=== PATIENT | female | born 1980 | race African-American/Black ===

== ENCOUNTER 2017-09-10 08:31 | Inpatient (IN) | payer SELFPAY ==
[~2017-09-10] VITALS: Ht 167.6 cm; Wt 94.8 kg
[2017-09-10] MEDS ORDERED: IPRATROPIUM BROMIDE (0.02%) 0.5MG/2.5ML NEB HHN STA (08:47)
[2017-09-10] MEDS ORDERED: METHYLPREDNISOLONE SOD SUCC 125 MG/2 ML VIAL IV STA (08:47)
[2017-09-10] MEDS: ALBUTEROL (0.083%) 2.5MG/3ML NEB HHN SCH ×3 (08:50→10:05)
[2017-09-10 09:27] LABS: CHLORIDE 107 mEq/L (98-107)
[2017-09-10 09:30] LABS: BASOPHILS % 0.3 % (0.0-2.0); EOSINOPHILS % 1.8 % (0.0-5.0); HEMOGLOBIN. 12.6 g/dL (12.0-16.0); MEAN CORPUSCULAR VOLUME 82.7 fL (81.0-99.0); MEAN PLATELET VOLUME 6.9 fl (7.4-10.4); MONOCYTES % 3.2 % (2.0-8.0); NEUTROPHILS % 79.7 % (40.0-76.0); PLATELET 272 x1000/uL (130-400); RED BLOOD CELL COUNT 4.35 mill/uL (4.2-5.4); RED CELL DISTRIBUTION WIDTH 13.7 % (11.6-14.6)
[2017-09-10] MEDS ORDERED: POTASSIUM CHLORIDE 20MEQ TABLET SR PO ONE (10:30)
[2017-09-10] MEDS ORDERED: KCL 10MEQ/50ML PREMIX 50 ML IV ONE (10:30)
[2017-09-10] MEDS ORDERED: MAGNESIUM 2 G PREMIX 50 ML IV ONE (10:45)
[2017-09-10 13:30] VITALS: BP 151/60
[2017-09-10] MEDS ORDERED: IPRATROPIUM/ALBUTEROL 0.5-3(2.5)MG/3ML NEB HHN PRN (13:45)
[2017-09-10 14:00] VITALS: BP 123/72
[2017-09-10] MEDS ORDERED: GUAIFENESIN 200MG/10ML SUGAR FREE UDC PO PRN (14:30)
[2017-09-10] MEDS ORDERED: CLONIDINE 0.1MG TABLET PO PRN (14:30)
[2017-09-10] MEDS ORDERED: ACETAMINOPHEN 325MG TABLET PO PRN (14:30)
[2017-09-10] MEDS ORDERED: ONDANSETRON HCL 4MG/2ML VIAL IV PRN (14:30)
[2017-09-10 15:23] VITALS: BP 115/71
[2017-09-10] MEDS: HYDROCODONE/ACETAMINOPHEN 5/325MG TABLET PO PRN (15:39)
[2017-09-10] MEDS: ENOXAPARIN 40MG/0.4ML SYR SUBCUT SCH (15:43)
[2017-09-10] MEDS: IPRATROPIUM/ALBUTEROL 0.5-3(2.5)MG/3ML NEB INH PRN (15:43)
[2017-09-10] MEDS: LEVOFLOXACIN 500MG PREMIX 100 ML IV SCH (16:55)
[2017-09-10 20:00] VITALS: BP 118/75
[2017-09-10] MEDS: IPRATROPIUM/ALBUTEROL 0.5-3(2.5)MG/3ML NEB INH SCH (21:22)
[2017-09-11] VITALS: BP 104/69
[2017-09-11] MEDS: IPRATROPIUM/ALBUTEROL 0.5-3(2.5)MG/3ML NEB INH SCH ×4 (01:45→20:57)
[2017-09-11 04:00] VITALS: BP 106/70
[2017-09-11] MEDS ORDERED: IBUP50DR2 PO (04:47)
[2017-09-11] MEDS ORDERED: ACET-2178 PO (04:47)
[2017-09-11 06:39] LABS: BASOPHILS % 0.1 % (0.0-2.0); HEMATOCRIT. 33.8 % (36.0-48.0); HEMOGLOBIN. 11.9 g/dL (12.0-16.0); MEAN CORPUSCULAR HEMOGLOBIN 28.6 pg (28.0-32.0); MEAN CORPUSCULAR VOLUME 81.4 fL (81.0-99.0); MONOCYTES % 5.7 % (2.0-8.0); NEUTROPHILS % 86.2 % (40.0-76.0); PLATELET 304 x1000/uL (130-400); RED BLOOD CELL COUNT 4.15 mill/uL (4.2-5.4)
[2017-09-11 07:30] LABS: CHLORIDE 107 mEq/L (98-107)
[2017-09-11 08:00] VITALS: BP 109/75
[2017-09-11] MEDS: HYDROCODONE/ACETAMINOPHEN 5/325MG TABLET PO PRN ×2 (09:40→20:14)
[2017-09-11 12:00] VITALS: BP 101/61
[2017-09-11] MEDS ORDERED: BENZONATATE 100MG CAPSULE PO PRN (14:15)
[2017-09-11] MEDS: ENOXAPARIN 40MG/0.4ML SYR SUBCUT SCH (14:44)
[2017-09-11] MEDS: LEVOFLOXACIN 500MG PREMIX 100 ML IV SCH (15:41)
[2017-09-11 16:00] VITALS: BP 108/72
[2017-09-11] MEDS: METHYLPREDNISOLONE SOD SUCC 40 MG/ML VIAL IV SCH (17:29)
[2017-09-11] MEDS: IPRATROPIUM/ALBUTEROL 0.5-3(2.5)MG/3ML NEB INH PRN (18:34)
[2017-09-11 20:00] VITALS: BP 110/73
[2017-09-11] MEDS: FAMOTIDINE 20MG/2ML VIAL IV SCH (20:13)
[2017-09-11] MEDS ORDERED: MONTELUKAST SODIUM 10MG TABLET PO SCH (21:00)
[2017-09-12] VITALS: BP 107/70
[2017-09-12] MEDS: METHYLPREDNISOLONE SOD SUCC 40 MG/ML VIAL IV SCH ×2 (01:46→09:56)
[2017-09-12] MEDS: IPRATROPIUM/ALBUTEROL 0.5-3(2.5)MG/3ML NEB INH SCH ×2 (02:10→08:47)
[2017-09-12 04:00] VITALS: BP 111/71
[2017-09-12 06:48] LABS: BASOPHILS % 0.2 % (0.0-2.0); HEMATOCRIT. 37.4 % (36.0-48.0); HEMOGLOBIN. 12.8 g/dL (12.0-16.0); LYMPHOCYTES % 12.8 % (20.0-50.0); MEAN CORPUSCULAR HEMOGLOBIN 28.2 pg (28.0-32.0); MEAN CORPUSCULAR VOLUME 82.7 fL (81.0-99.0); MEAN PLATELET VOLUME 7.2 fl (7.4-10.4); MONOCYTES % 5.6 % (2.0-8.0); NEUTROPHILS % 81.4 % (40.0-76.0); PLATELET 319 x1000/uL (130-400); RED BLOOD CELL COUNT 4.52 mill/uL (4.2-5.4); RED CELL DISTRIBUTION WIDTH 14.4 % (11.6-14.6)
[2017-09-12 08:05] LABS: CHLORIDE 105 mEq/L (98-107)
[2017-09-12 08:30] VITALS: BP 110/77
[2017-09-12] MEDS ORDERED: ENOXAPARIN 30MG/0.3ML SYR SUBCUT SCH (09:00)
[2017-09-12] MEDS: FAMOTIDINE 20MG/2ML VIAL IV SCH (09:56)
[2017-09-12 12:00] VITALS: BP 108/72
[2017-09-12 13:06] VITALS: BP 110/77
[2017-09-12] MEDS ORDERED: GUAIFENESIN 600MG ER TABLET PO SCH (21:00)
[2017-09-12] MEDS ORDERED: METHYLPREDNISOLONE SOD SUCC 40 MG/ML VIAL IV SCH (21:00)
[2017-09-12] MEDS ORDERED: FAMOTIDINE 20MG TABLET PO SCH (21:00)
== END 2017-09-12 13:51 | disposition home or self-care (01) | DRG 133 ==
LOC: ER 08:31 → 5WST 10:50 → ENRESERV 11:48
PROVIDERS: ADMIT Hospitalist; ATTEND Hospitalist
DX: J96.00 Acute respiratory failure, unspecified whether with hypoxia or hypercapnia (principal); E46 Unspecified protein-calorie malnutrition; J45.901 Unspecified asthma with (acute) exacerbation; J20.9 Acute bronchitis, unspecified; F17.210 Nicotine dependence, cigarettes, uncomplicated; E87.6 Hypokalemia; D72.829 Elevated white blood cell count, unspecified; T38.0X5A Adverse effect of glucocorticoids and synthetic analogues, initial encounter; Z82.5 Family history of asthma and other chronic lower respiratory diseases; Y92.89 Other specified places as the place of occurrence of the external cause
CPT/HCPCS: 36415; 71045; 80053; 85025; 93005; 93970; 94640; 96374; 96375; 99285; J1650; J1956; J2920; J2930; J3475; J3480; J3490; J7030; J7611; J7620

== ENCOUNTER 2020-11-30 14:50 | Emergency (ER) | payer SELFPAY ==
[~2020-11-30] VITALS: Ht 172.7 cm; Wt 91.0 kg
[~2020-11-30 14:50] MED LIST: IBUP50DR2 PO; TOPUD PO
[2020-11-30] MEDS ORDERED: MAGNESIUM/ALUMINUM HYDROXIDE/SIMETHICONE 30ML UDC PO STA (16:35)
[2020-11-30] MEDS ORDERED: ONDANSETRON 4MG ODT PO STA (16:35)
[2020-11-30 17:31] LABS: CHLORIDE 107 mEq/L (98-107)
[2020-11-30 17:51] LABS: HCG SCREEN NEGATIVE
[2020-11-30] MEDS ORDERED: KETOROLAC 30MG/ML VIAL IV STA (18:10)
[2020-11-30 18:19] LABS: CLARITY URINE CLEAR (CLEAR); COLOR URINE YELLOW (YELLOW); KETONES URINE TRACE (NEGATIVE); LEUKOCYTE ESTERASE URINE 1+ (NEGATIVE); NITRITE URINE NEGATIVE (NEGATIVE); OCCULT BLOOD URINE 3+ (NEGATIVE); PROTEIN URINE NEGATIVE (NEGATIVE); SPECIFIC GRAVITY URINE 1.016 (1.005-1.030); UROBILINOGEN URINE 0.2 E.U./dL (0.2-1.0)
[2020-11-30 18:46] LABS: BASOPHILS % 0.9 % (0.0-2.0); EOSINOPHILS % 2.2 % (0.0-5.0); HEMATOCRIT. 35.4 % (36.0-48.0); HEMOGLOBIN. 12.7 g/dL (12.0-16.0); LYMPHOCYTES % 33.9 % (20.0-50.0); MEAN CORPUSCULAR HEMOGLOBIN 30.9 pg (28.0-32.0); MEAN CORPUSCULAR VOLUME 85.9 fL (81.0-99.0); MEAN PLATELET VOLUME 7.7 fl (7.4-10.4); PLATELET 315 x1000/uL (130-400); RED BLOOD CELL COUNT 4.12 mill/uL (4.2-5.4)
[2020-11-30] MEDS ORDERED: CEFTRIAXONE 1 G PREMIX 50 ML IV ONE (19:15)
[2020-11-30] MEDS ORDERED: IBUP-2029 MT (20:03)
[2020-11-30] MEDS ORDERED: T3 PO (20:04)
[2020-11-30] MEDS ORDERED: CEPH500C2 MT (20:05)
[2020-11-30 21:00] VITALS: BP 142/81
== END 2020-11-30 21:00 | disposition home or self-care (01) ==
LOC: ER 14:50
DX: D25.9 Leiomyoma of uterus, unspecified (principal); K85.90 Acute pancreatitis without necrosis or infection, unspecified; N30.00 Acute cystitis without hematuria; R03.0 Elevated blood-pressure reading, without diagnosis of hypertension
CPT/HCPCS: 36415; 74176; 80053; 81003; 81025; 83690; 84703; 85025; 93005; 96365; 96375; 99285; J0696; J1885; Q0162

== ENCOUNTER 2022-12-10 17:26 | Emergency (ER) | payer MEDICAID, OTHER ==
[~2022-12-10] VITALS: Ht 165.1 cm; Wt 77.0 kg
[~2022-12-10 17:26] MED LIST changes: +CEPH500C2 MT; +IBUP-2029 MT; +T3 PO
[2022-12-10 18:42] LABS: BASOPHILS % 0.3 % (0.0-2.0); EOSINOPHILS % 0.5 % (0.0-5.0); HEMATOCRIT. 24.8 % (36.0-48.0); HEMOGLOBIN. 8.8 g/dL (12.0-16.0); LYMPHOCYTES % 21.2 % (20.0-50.0); MEAN CORPUSCULAR HEMOGLOBIN 37.7 pg (28.0-32.0); MEAN CORPUSCULAR VOLUME 106.2 fL (81.0-99.0); MEAN PLATELET VOLUME 7.7 fl (7.4-10.4); MONOCYTES % 10.2 % (2.0-8.0); NEUTROPHILS % 67.8 % (40.0-76.0); PLATELET 141 x1000/uL (130-400); RED BLOOD CELL COUNT 2.33 mill/uL (4.2-5.4); RED CELL DISTRIBUTION WIDTH 17.8 % (11.6-14.6)
[2022-12-10 18:51] LABS: CHLORIDE 111 mEq/L (98-107)
[2022-12-10 18:52] LABS: PROTHROMBIN TIME 10.6 sec (9.6-11.0)
[2022-12-10] MEDS ORDERED: ACETAMINOPHEN 325MG TABLET PO ONE (19:00)
[2022-12-10] MEDS ORDERED: ALBUTEROL (0.083%) 2.5MG/3ML NEB HHN ONE (19:00)
[2022-12-10] MEDS ORDERED: IPRATROPIUM BROMIDE (0.02%) 0.5MG/2.5ML NEB HHN ONE (19:00)
[2022-12-10] MEDS ORDERED: SODIUM CHLORIDE 0.9% 1000ML BAG (SEPSIS BOLUS) IV ONE (19:00)
[2022-12-10] MEDS ORDERED: IPRATROPIUM BROMIDE (0.02%) 0.5MG/2.5ML NEB ONE (20:47)
[2022-12-10] MEDS ORDERED: ALBUTEROL (0.5%) 2.5MG/0.5ML NEB HHN ONE (20:47)
[2022-12-10 22:29] LABS: D-DIMER 0.42 mg/L FEU (<0.50); PROTHROMBIN TIME 10.5 sec (9.6-11.0)
[2022-12-10 22:37] LABS: CLARITY URINE CLEAR (CLEAR); COLOR URINE YELLOW (YELLOW); KETONES URINE NEGATIVE (NEGATIVE); LEUKOCYTE ESTERASE URINE NEGATIVE (NEGATIVE); NITRITE URINE NEGATIVE (NEGATIVE); OCCULT BLOOD URINE NEGATIVE (NEGATIVE); PROTEIN URINE NEGATIVE (NEGATIVE); SPECIFIC GRAVITY URINE 1.023 (1.005-1.030)
[2022-12-10 22:38] LABS: HCG SCREEN NEGATIVE
[2022-12-10 22:41] LABS: CREATINE KINASE 60 IU/L (26-192); ETHANOL BLOOD < 10 mg/dL
[2022-12-10 22:54] LABS: *AMPHETAMINES SCREEN URINE NEGATIVE (NEGATIVE); *BARBITURATES SCREEN URINE NEGATIVE (NEGATIVE); *BENZODIAZEPINES SCREEN URINE NEGATIVE (NEGATIVE); *COCAINE SCREEN URINE NEGATIVE (NEGATIVE); METHADONE URINE SCREEN NEGATIVE (NEGATIVE); OPIATES URINE SCREEN NEGATIVE (NEGATIVE); PHENCYCLIDINE URINE SCREEN NEGATIVE (NEGATIVE)
[2022-12-10 23:01] LABS: CANNABINOID URINE SCREEN PRESUMTIVE POSITIVE (NEGATIVE)
[2022-12-10] MEDS ORDERED: GUAI600T26 MT (23:12)
[2022-12-10] MEDS ORDERED: ACET-2708 MT (23:12)
[2022-12-10] MEDS ORDERED: ALBU6.7H3 INH (23:12)
[2022-12-11] VITALS: BP 92/68
== END 2022-12-11 00:25 | disposition home or self-care (01) ==
LOC: ER 17:26
DX: J45.909 Unspecified asthma, uncomplicated (principal); F12.90 Cannabis use, unspecified, uncomplicated; Z20.822 Contact with and (suspected) exposure to COVID-19; Z85.3 Personal history of malignant neoplasm of breast; Z79.899 Other long term (current) drug therapy
CPT/HCPCS: 36415; 71045; 80053; 80305; 80320; 81003; 82550; 83605; 83690; 83880; 84145; 84484; 84703; 85025; 85379; 85610; 87040; 87086; 87426; 87804; 93005; 94640; 99285; C9803; J7030; Z7610; G0480

== ENCOUNTER 2022-12-25 11:44 | Inpatient (IN) | payer OTHER ==
[~2022-12-25] VITALS: Ht 165.1 cm; Wt 79.4 kg
[~2022-12-25 11:44] MED LIST changes: +ACET-2708 MT; +ALBU6.7H3 INH; +GUAI600T26 MT
[2022-12-25] MEDS ORDERED: IPRATROPIUM/ALBUTEROL 0.5-3(2.5)MG/3ML NEB HHN ONE (12:45)
[2022-12-25] MEDS ORDERED: METHYLPREDNISOLONE SOD SUCC 125 MG/2 ML VIAL IV ONE (12:45)
[2022-12-25 13:02] LABS: HEMATOCRIT. 21.4 % (36.0-48.0); HEMOGLOBIN. 7.5 g/dL (12.0-16.0); MEAN CORPUSCULAR HEMOGLOBIN 36.8 pg (28.0-32.0); MEAN CORPUSCULAR VOLUME 104.9 fL (81.0-99.0); MEAN PLATELET VOLUME 8.4 fl (7.4-10.4); RED BLOOD CELL COUNT 2.04 mill/uL (4.2-5.4); RED CELL DISTRIBUTION WIDTH 16.4 % (11.6-14.6)
[2022-12-25 13:06] LABS: CHLORIDE 108 mEq/L (98-107)
[2022-12-25 14:07] LABS: PLATELET ESTIMATE MARKEDLY DECREASED
[2022-12-25 14:08] LABS: PLATELET 35 x1000/uL (130-400)
[2022-12-25 14:11] LABS: NUCLEATED RED BLOOD CELLS 1 /100 WBC
[2022-12-25 18:38] VITALS: BP 93/52
[2022-12-25] MEDS ORDERED: OLAN5TAB74 PO (19:47)
[2022-12-25] MEDS ORDERED: ALBU6.7H15 INH (19:47)
[2022-12-25] MEDS ORDERED: ONDA8TAB59 PO (19:47)
[2022-12-25 20:00] VITALS: BP 105/69
[2022-12-25] MEDS ORDERED: ACETAMINOPHEN 325MG TABLET PO PRN ×2 (20:15)
[2022-12-25] MEDS ORDERED: CLONIDINE 0.1MG TABLET PO PRN (20:15)
[2022-12-25] MEDS ORDERED: LORAZEPAM 0.5MG TABLET PO PRN (20:15)
[2022-12-25] MEDS ORDERED: ONDANSETRON HCL 4MG/2ML INJ IV PRN (20:15)
[2022-12-25] MEDS ORDERED: DOCUSATE SODIUM 100MG CAPSULE PO PRN (20:15)
[2022-12-25] MEDS ORDERED: NALOXONE HCL 0.4MG/ML VIAL IV PRN (20:30)
[2022-12-25] MEDS: GUAIFENESIN 600MG ER TABLET PO SCH (20:47)
[2022-12-25] MEDS: IPRATROPIUM/ALBUTEROL 0.5-3(2.5)MG/3ML NEB HHN PRN (21:26)
[2022-12-25 22:25] LABS: *AMPHETAMINES SCREEN URINE NEGATIVE (NEGATIVE); *BARBITURATES SCREEN URINE NEGATIVE (NEGATIVE); *BENZODIAZEPINES SCREEN URINE NEGATIVE (NEGATIVE); *COCAINE SCREEN URINE NEGATIVE (NEGATIVE); CANNABINOID URINE SCREEN NEGATIVE (NEGATIVE); METHADONE URINE SCREEN NEGATIVE (NEGATIVE); OPIATES URINE SCREEN NEGATIVE (NEGATIVE); PHENCYCLIDINE URINE SCREEN NEGATIVE (NEGATIVE)
[2022-12-25 22:43] VITALS: BP 113/71
[2022-12-25 23:00] VITALS: BP 97/55
[2022-12-26] VITALS (10 sets, daily range): BP systolic 100–117; BP diastolic 53–73
[2022-12-26] MEDS: IPRATROPIUM/ALBUTEROL 0.5-3(2.5)MG/3ML NEB HHN PRN ×2 (01:43→08:08)
[2022-12-26 06:07] LABS: CHLORIDE 110 mEq/L (98-107)
[2022-12-26 07:01] LABS: HEMATOCRIT. 21.9 % (36.0-48.0); HEMOGLOBIN. 7.3 g/dL (12.0-16.0); MEAN CORPUSCULAR HEMOGLOBIN 36.1 pg (28.0-32.0); MEAN PLATELET VOLUME 7.9 fl (7.4-10.4); PLATELET 77 x1000/uL (130-400); RED BLOOD CELL COUNT 2.03 mill/uL (4.2-5.4); RED CELL DISTRIBUTION WIDTH 16.8 % (11.6-14.6)
[2022-12-26 07:22] LABS: PLATELET ESTIMATE DECREASED
[2022-12-26] MEDS: HYDROCODONE/ACETAMINOPHEN 5/325MG TABLET PO PRN ×2 (07:39→17:08)
[2022-12-26] MEDS: GUAIFENESIN 600MG ER TABLET PO SCH (09:00)
[2022-12-26] MEDS ORDERED: METHYLPREDNISOLONE SOD SUCC 40 MG/ML VIAL IV SCH (09:00)
[2022-12-26] MEDS: BENZONATATE 100MG CAPSULE PO PRN ×2 (10:02→17:08)
[2022-12-26] MEDS ORDERED: GUAIFENESIN 600MG ER TABLET PO PRN (11:00)
[2022-12-26] MEDS: IPRATROPIUM/ALBUTEROL 0.5-3(2.5)MG/3ML NEB HHN SCH ×2 (12:59→20:42)
[2022-12-26 13:32] LABS: UCG SCREEN NEGATIVE
[2022-12-26] MEDS ORDERED: MORPHINE SULFATE 2 MG/ML CPJ (NOT FOR IM USE) IV PRN (19:15)
[2022-12-26] MEDS ORDERED: DIPHENHYDRAMINE 25MG CAPSULE PO NR (20:00)
[2022-12-26] MEDS: OLANZAPINE 5MG TABLET PO SCH (21:29)
[2022-12-26] MEDS: METHYLPREDNISOLONE SOD SUCC 40 MG/ML VIAL IV SCH (21:30)
[2022-12-27] VITALS (7 sets, daily range): BP systolic 92–113; BP diastolic 58–73
[2022-12-27] MEDS: IPRATROPIUM/ALBUTEROL 0.5-3(2.5)MG/3ML NEB HHN SCH ×5 (00:54→20:14)
[2022-12-27] MEDS: BENZONATATE 100MG CAPSULE PO PRN (02:22)
[2022-12-27] MEDS: METHYLPREDNISOLONE SOD SUCC 40 MG/ML VIAL IV SCH ×3 (05:30→21:06)
[2022-12-27 05:36] LABS: HEMATOCRIT. 24.7 % (36.0-48.0); HEMOGLOBIN. 8.6 g/dL (12.0-16.0); MEAN CORPUSCULAR HEMOGLOBIN 35.6 pg (28.0-32.0); MEAN PLATELET VOLUME 8.1 fl (7.4-10.4); PLATELET 78 x1000/uL (130-400); RED BLOOD CELL COUNT 2.42 mill/uL (4.2-5.4); RED CELL DISTRIBUTION WIDTH 18.5 % (11.6-14.6)
[2022-12-27 13:12] LABS: PLATELET ESTIMATE DECREASED
[2022-12-27] MEDS ORDERED: CEFTRIAXONE 1,000 MG in DEXTROSE 5% WATER 50 ML IV SCH (16:30)
[2022-12-27] MEDS: AZITHROMYCIN 500 MG TABLET PO SCH (16:42)
[2022-12-27] MEDS: OLANZAPINE 5MG TABLET PO SCH (21:07)
[2022-12-28] MEDS: IPRATROPIUM/ALBUTEROL 0.5-3(2.5)MG/3ML NEB HHN SCH ×5 (00:29→16:18)
[2022-12-28 04:00] VITALS: BP 93/55
[2022-12-28] MEDS: METHYLPREDNISOLONE SOD SUCC 40 MG/ML VIAL IV SCH ×2 (05:21→15:43)
[2022-12-28 08:00] VITALS: BP 110/73
[2022-12-28] MEDS ORDERED: FAMO20TA8 MT (09:33)
[2022-12-28] MEDS ORDERED: P20 MT (09:33)
[2022-12-28] MEDS ORDERED: ALBU18HF2 IH (09:33)
[2022-12-28] MEDS ORDERED: AZIT500T8 MT (09:33)
[2022-12-28] MEDS ORDERED: GUAIFENESIN 600MG ER TABLET PO SCH (10:00)
[2022-12-28] MEDS ORDERED: GUAI600T44 MT (10:38)
[2022-12-28 12:00] VITALS: BP 107/60
[2022-12-28 16:00] VITALS: BP 112/61
[2022-12-28] MEDS: AZITHROMYCIN 500 MG TABLET PO SCH (16:42)
[2022-12-28 16:47] VITALS: BP 110/60
== END 2022-12-28 18:15 | disposition home or self-care (01) | DRG 133 ==
LOC: ER 11:44 → 7WST 19:20
PROVIDERS: ADMIT Internal Medicine; ATTEND Internal Medicine
PROC: 30233R1 Transfusion of Nonautologous Platelets into Peripheral Vein, Percutaneous Approach (ICD-10-PCS; principal; 2022-12-25)
PROC: 30233N1 Transfusion of Nonautologous Red Blood Cells into Peripheral Vein, Percutaneous Approach (ICD-10-PCS; 2022-12-26)
DX: J96.01 Acute respiratory failure with hypoxia (principal); D69.6 Thrombocytopenia, unspecified; D72.821 Monocytosis (symptomatic); D72.823 Leukemoid reaction; Z20.822 Contact with and (suspected) exposure to COVID-19; D72.825 Bandemia; J45.909 Unspecified asthma, uncomplicated; D53.9 Nutritional anemia, unspecified; J04.0 Acute laryngitis; J06.9 Acute upper respiratory infection, unspecified; Z92.21 Personal history of antineoplastic chemotherapy; Z85.3 Personal history of malignant neoplasm of breast; Z98.891 History of uterine scar from previous surgery; Z87.891 Personal history of nicotine dependence; Z79.899 Other long term (current) drug therapy
CPT/HCPCS: 36415; 70490; 71045; 71250; 80048; 80053; 80305; 81025; 83880; 84145; 84484; 85025; 86850; 86900; 86920; 87426; 93005; 93306; 94640; 99285; C9803; J0696; J2920; J2930; J7060; P9016; P9034; Q0163

== ENCOUNTER 2023-11-04 15:23 | Inpatient (IN) | payer MEDICAID, OTHER ==
[~2023-11-04] VITALS: Ht 172.7 cm; Wt 73.5 kg
[~2023-11-04 15:23] MED LIST changes: -ACET-2708 MT; +ALBU18HF2 IH; -ALBU6.7H3 INH; +AZIT500T8 MT; -CEPH500C2 MT; +FAMO20TA8 MT; -GUAI600T26 MT; +GUAI600T44 MT; -IBUP-2029 MT; -IBUP50DR2 PO; +OLAN5TAB74 PO; +ONDA8TAB59 PO; +P20 MT; -T3 PO; -TOPUD PO
[2023-11-04] MEDS ORDERED: CEFEPIME 1GM IN DEXT 5% 50ML IV ONE (17:15)
[2023-11-04] MEDS: VANCOMYCIN 1G PREMIX 200 ML IV NR (17:15)
[2023-11-04] MEDS: SODIUM CHLORIDE 0.9% 1000ML BAG (SEPSIS BOLUS) IV ONE (18:07)
[2023-11-04 18:21] LABS: DIFFERENTIAL COMMENT 0; EOSINOPHILS % 8.4 % (0.0-5.0); HEMATOCRIT. 39.1 % (36.0-48.0); HEMOGLOBIN. 13.5 g/dL (12.0-16.0); MEAN CORPUSCULAR HEMOGLOBIN 35.4 pg (28.0-32.0); MEAN CORPUSCULAR HGB CONC 34.6 g/dL (31.0-37.0); MEAN CORPUSCULAR VOLUME 102.3 fL (81.0-99.0); MEAN PLATELET VOLUME 6.7 fl (7.4-10.4); MONOCYTES % 9.7 % (2.0-8.0); NEUTROPHILS % 44.9 % (40.0-76.0); PLATELET 198 x1000/uL (130-400); RED BLOOD CELL COUNT 3.82 mill/uL (4.2-5.4); RED CELL DISTRIBUTION WIDTH 18.2 % (11.6-14.6); WHITE BLOOD COUNT 5.3 x1000/uL (4.5-11.0)
[2023-11-04] MEDS: CEFEPIME 1GM/50ML 50 ML IV NR (18:24)
[2023-11-04 18:51] LABS: HCG SCREEN NEGATIVE
[2023-11-04 18:54] LABS: ALANINE AMINOTRANSFERASE 18 IU/L (10-49); ALBUMIN 4.3 g/dL (3.2-4.8); ASPARTATE AMINOTRANSFERASE 25 IU/L (<34); BILIRUBIN TOTAL 0.5 mg/dL (0.1-1.0); CALCIUM 8.2 mg/dL (8.7-10.4); CARBON DIOXIDE 21 mEq/L (21-32); CHLORIDE 108 mEq/L (98-107); CREATININE 0.8 mg/dL (0.6-1.0); GLUCOSE 78 mg/dL (70-105); POTASSIUM 4.3 mEq/L (3.5-5.1); PROTEIN TOTAL 7.4 g/dL (6.0-8.3); SODIUM 136 mEq/L (136-145); UREA NITROGEN BLOOD 8 mg/dL (9-23)
[2023-11-04] MEDS: ONDANSETRON HCL 4MG/2ML INJ IV NR (18:57)
[2023-11-04 19:13] LABS: CLARITY URINE CLEAR (CLEAR); COLOR URINE YELLOW (YELLOW); GLUCOSE URINE NEGATIVE (NEGATIVE); KETONES URINE TRACE (NEGATIVE); LEUKOCYTE ESTERASE URINE NEGATIVE (NEGATIVE); NITRITE URINE NEGATIVE (NEGATIVE); OCCULT BLOOD URINE NEGATIVE (NEGATIVE); PROTEIN URINE NEGATIVE (NEGATIVE); SPECIFIC GRAVITY URINE 1.026 (1.005-1.030)
[2023-11-04 19:30] LABS: INR 0.9; PROTHROMBIN TIME 10.4 sec (9.6-11.0)
[2023-11-04 23:38] VITALS: PULSE 92; RESP 22; O2SAT 99
[2023-11-04] MEDS: IPRATROPIUM/ALBUTEROL 0.5-3(2.5)MG/3ML NEB HHN ONE (23:38)
[2023-11-05] MEDS: IOHEXOL-350 100 ML BOTTLE ONE (01:54)
[2023-11-05] MEDS ORDERED: IPRATROPIUM/ALBUTEROL 0.5-3(2.5)MG/3ML NEB HHN PRN (02:45)
[2023-11-05 03:30] VITALS: BP 136/67; PULSE 74; RESP 18; TEMP 98.7
[2023-11-05] MEDS ORDERED: ACETAMINOPHEN 325MG TABLET PO PRN (06:30)
[2023-11-05] MEDS ORDERED: HYDRALAZINE 20MG/ML VIAL IV PRN (06:30)
[2023-11-05 08:00] VITALS: BP 110/71; PULSE 98; RESP 18; TEMP 97.6
[2023-11-05 12:00] VITALS: BP 105/71; PULSE 76; RESP 20; TEMP 97.6
[2023-11-05] MEDS: PREDNISONE 20MG TABLET PO SCH (12:23)
[2023-11-05 15:17] VITALS: PULSE 80; RESP 20
[2023-11-05] MEDS: IPRATROPIUM/ALBUTEROL 0.5-3(2.5)MG/3ML NEB HHN SCH (15:17)
[2023-11-05 16:00] VITALS: BP 130/70; PULSE 82; RESP 20; TEMP 97.7
[2023-11-05 20:03] VITALS: BP 101/64; PULSE 75; RESP 18; TEMP 98.1
[2023-11-06] VITALS (8 sets, daily range): BP systolic 96–110; BP diastolic 48–75; PULSE 64–89; RESP 16–20; TEMP 97.6–98.3; O2SAT 98–100
[2023-11-06] MEDS ORDERED: P20 MT (13:02)
[2023-11-06] MEDS ORDERED: FLUT1DIS3 INH (13:02)
[2023-11-06] MEDS ORDERED: IPRA3AMP9 NEB (13:52)
== END 2023-11-06 15:52 | disposition home or self-care (01) | DRG 113 ==
LOC: ER 15:23 → EDBEDREQ 17:20 → 7WST 21:33 → EDBEDREQTM 21:35 → EDBEDREQSVC 21:35 → EDBEDREQ 21:35 → 7WST 11-05 03:27 → ER 11-05 03:43 → 7WST 11-05 04:34
PROVIDERS: ADMIT Internal Medicine; ATTEND Internal Medicine
DX: J06.9 Acute upper respiratory infection, unspecified (principal); J45.901 Unspecified asthma with (acute) exacerbation; D05.10 Intraductal carcinoma in situ of unspecified breast; Z98.891 History of uterine scar from previous surgery
CPT/HCPCS: 36415; 71045; 71250; 71275; 80053; 81003; 83605; 84145; 84703; 85025; 93005; 94640; 99291; J0692; J2405; J3370; J7512; Q9967

== ENCOUNTER 2024-06-25 13:10 | Inpatient (IN) | payer MEDICAID ==
[~2024-06-25] VITALS: Ht 165.1 cm; Wt 88.9 kg
[~2024-06-25 13:10] MED LIST changes: -AZIT500T8 MT; +FLUT1DIS3 INH; +IPRA3AMP9 NEB
[2024-06-25 13:50] VITALS: PULSE 98; RESP 22
[2024-06-25] MEDS: IPRATROPIUM BROMIDE (0.02%) 0.5MG/2.5ML NEB HHN STA (13:50)
[2024-06-25] MEDS: ALBUTEROL (0.083%) 2.5MG/3ML NEB HHN STA (13:50)
[2024-06-25] MEDS: METHYLPREDNISOLONE SOD SUCC 125MG/2ML (ACT-O-VIAL) IV STA (14:03)
[2024-06-25 14:15] LABS: BG BASE EXCESS -1.3 mmol/L (-2.0-3.0); BG CARBOXYHEMOGLOBIN 0.6 % (0.5-1.5); BG DEOXYHEMOGLOBIN 0.7 % (0.0-5.0); BG FRACTION INSPIRED OXYGEN 60; BG HCO3 ACT 22.6 mmol/L (21.0-28.0); BG METHEMOGLOBIN 0.3 % (0.5-1.5); BG OXYGEN SATURATION 99.3 % (94.0-98.0); BG OXYHEMOGLOBIN 98.4 % (94.0-98.0); BG PCO2 35.2 mmHg (32.0-45.0); BG PH 7.425 (7.350-7.450); BG PO2 180.9 mmHg (83.0-108.0); BG SAMPLE SITE LEFT RADIAL; BG TOTAL HEMOGLOBIN 13.4 g/dL (12.0-16.0); BG VENT MODE MASK HHN
[2024-06-25 15:13] LABS: BASOPHILS % 0.7 % (0.0-2.0); DIFFERENTIAL COMMENT 0; EOSINOPHILS % 2.4 % (0.0-5.0); HEMOGLOBIN. 13.3 g/dL (12.0-16.0); MEAN CORPUSCULAR HEMOGLOBIN 34.5 pg (28.0-32.0); MEAN CORPUSCULAR HGB CONC 33.2 g/dL (31.0-37.0); MEAN CORPUSCULAR VOLUME 103.9 fL (81.0-99.0); MEAN PLATELET VOLUME 6.8 fl (7.4-10.4); MONOCYTES % 6.6 % (2.0-8.0); NEUTROPHILS % 73.3 % (40.0-76.0); PLATELET 192 x1000/uL (130-400); RED BLOOD CELL COUNT 3.85 mill/uL (4.2-5.4); RED CELL DISTRIBUTION WIDTH 16.7 % (11.6-14.6); WHITE BLOOD COUNT 5.4 x1000/uL (4.5-11.0)
[2024-06-25 16:28] VITALS: PULSE 117; RESP 22; O2SAT 96
[2024-06-25 16:28] LABS: CHLORIDE 107 mEq/L (98-107); POTASSIUM 3.8 mEq/L (3.5-5.1); SODIUM 138 mEq/L (136-145)
[2024-06-25 16:29] LABS: CALCIUM 9.3 mg/dL (8.7-10.4); CARBON DIOXIDE 23 mEq/L (21-32)
[2024-06-25 16:34] LABS: CREATININE 0.8 mg/dL (0.6-1.0); GLUCOSE 97 mg/dL (70-105)
[2024-06-25 16:37] LABS: UREA NITROGEN BLOOD < 5 mg/dL (9-23)
[2024-06-25] MEDS: IPRATROPIUM/ALBUTEROL 0.5-3(2.5)MG/3ML NEB HHN NR (16:38)
[2024-06-25] MEDS ORDERED: DOCUSATE SODIUM 100MG CAPSULE PO PRN (17:15)
[2024-06-25] MEDS ORDERED: ACETAMINOPHEN 325MG TABLET PO PRN (17:15)
[2024-06-25] MEDS ORDERED: ACETAMINOPHEN 650MG/20.3ML UDC GT PRN (17:15)
[2024-06-25] MEDS ORDERED: HYDROCODONE/ACETAMINOPHEN 5/325MG TABLET PO PRN (17:15)
[2024-06-25] MEDS ORDERED: ONDANSETRON HCL 4MG/2ML INJ IV PRN (17:15)
[2024-06-25] MEDS ORDERED: CLONIDINE 0.1MG TABLET PO PRN (17:15)
[2024-06-25] MEDS ORDERED: IPRATROPIUM/ALBUTEROL 0.5-3(2.5)MG/3ML NEB HHN PRN (17:45)
[2024-06-25 20:00] VITALS: PULSE 114; RESP 22; O2SAT 97
[2024-06-25] MEDS: IPRATROPIUM/ALBUTEROL 0.5-3(2.5)MG/3ML NEB HHN SCH (20:00)
[2024-06-25] MEDS: PANTOPRAZOLE SODIUM 40 MG/VIAL IV NR (20:04)
[2024-06-25] MEDS: ENOXAPARIN 40MG/0.4ML SYR SUBCUT SCH (20:05)
[2024-06-25] MEDS: DEXT 5%/0.45% NACL 1000ML 1,000 ML IV ONE (20:38)
[2024-06-25] MEDS: CEFTRIAXONE 1GM/50ML 50 ML IV SCH (20:57)
[2024-06-25] MEDS: AZITHROMYCIN 500 MG in DEXT 5% WATER 250 ML IV SCH (21:49)
[2024-06-25] MEDS: METHYLPREDNISOLONE SOD SUCC 40MG/ML (ACT-O-VIAL) IV SCH (22:31)
[2024-06-26] VITALS (10 sets, daily range): BP systolic 100–113; BP diastolic 57–82; PULSE 87–110; RESP 18–22; TEMP 36.61404–37.05852; O2SAT 92–98
[2024-06-26] MEDS: MULTIVITAMINS,THER W-MINERALS TABLET PO SCH (08:52)
[2024-06-26] MEDS: GUAIFENESIN 200MG/10ML SUGAR FREE UDC PO PRN (08:52)
[2024-06-26] MEDS: PANTOPRAZOLE SODIUM 40 MG/VIAL IV SCH (08:52)
[2024-06-26] MEDS ORDERED: TOPUD PO (10:30)
[2024-06-26] MEDS ORDERED: GUAIFENESIN 200MG/10ML SUGAR FREE UDC PO PRN (13:45)
[2024-06-26] MEDS: BENZONATATE 100MG CAPSULE PO PRN (14:15)
[2024-06-26] MEDS: MAGNESIUM 1 G PREMIX 100 ML IV NR (14:30)
[2024-06-26] MEDS: BUDESONIDE 0.5MG/2ML NEB HHN SCH (14:56)
[2024-06-26 18:54] LABS: HEMATOCRIT. 38.6 % (36.0-48.0); HEMOGLOBIN. 13.2 g/dL (12.0-16.0); MEAN CORPUSCULAR HEMOGLOBIN 34.6 pg (28.0-32.0); MEAN CORPUSCULAR HGB CONC 34.2 g/dL (31.0-37.0); MEAN CORPUSCULAR VOLUME 101.3 fL (81.0-99.0); PLATELET 251 x1000/uL (130-400); RED BLOOD CELL COUNT 3.81 mill/uL (4.2-5.4); RED CELL DISTRIBUTION WIDTH 16.6 % (11.6-14.6); WHITE BLOOD COUNT 13.9 x1000/uL (4.5-11.0)
[2024-06-26 19:02] LABS: CARBON DIOXIDE 25 mEq/L (21-32); CHLORIDE 104 mEq/L (98-107); DIFFERENTIAL COMMENT 1; POTASSIUM 4.8 mEq/L (3.5-5.1); SODIUM 136 mEq/L (136-145)
[2024-06-26 19:03] LABS: CALCIUM 9.8 mg/dL (8.7-10.4)
[2024-06-26 19:08] LABS: CREATININE 0.7 mg/dL (0.6-1.0); GLUCOSE 114 mg/dL (70-105); UREA NITROGEN BLOOD 12 mg/dL (9-23)
[2024-06-26 19:10] LABS: PHOSPHORUS 2.6 mg/dL (2.5-4.9)
[2024-06-26] MEDS: CEFTRIAXONE 1GM/50ML 50 ML IV SCH (19:11)
[2024-06-26] MEDS: AZITHROMYCIN 500 MG TABLET PO SCH (19:11)
[2024-06-26] MEDS: GUAIFENESIN 600MG ER TABLET PO SCH (21:26)
[2024-06-27] VITALS (9 sets, daily range): BP systolic 98–133; BP diastolic 55–74; PULSE 74–96; RESP 18–22; TEMP 36.05844–37.72524; O2SAT 96–99
[2024-06-27] MEDS: ACETYLCYSTEINE 200MG/ML 20% VIAL 4ML INH SCH (02:02)
[2024-06-27 09:03] LABS: ANISOCYTOSIS 1+; PLATELET ESTIMATE NORMAL
[2024-06-27 09:09] LABS: HEMATOCRIT. 38.5 % (36.0-48.0); HEMOGLOBIN. 13.1 g/dL (12.0-16.0); MEAN CORPUSCULAR HEMOGLOBIN 34.5 pg (28.0-32.0); MEAN CORPUSCULAR VOLUME 101.5 fL (81.0-99.0); MEAN PLATELET VOLUME 7.2 fl (7.4-10.4); PLATELET 246 x1000/uL (130-400); RED BLOOD CELL COUNT 3.79 mill/uL (4.2-5.4); RED CELL DISTRIBUTION WIDTH 16.3 % (11.6-14.6); WHITE BLOOD COUNT 13.4 x1000/uL (4.5-11.0)
[2024-06-27 09:14] LABS: DIFFERENTIAL COMMENT 1
[2024-06-27 09:16] LABS: CALCIUM 10.1 mg/dL (8.7-10.4); CARBON DIOXIDE 26 mEq/L (21-32); CHLORIDE 102 mEq/L (98-107); POTASSIUM 4.4 mEq/L (3.5-5.1); SODIUM 136 mEq/L (136-145)
[2024-06-27 11:29] LABS: CREATININE 0.8 mg/dL (0.6-1.0); GLUCOSE 102 mg/dL (70-105); UREA NITROGEN BLOOD 16 mg/dL (9-23)
[2024-06-27] MEDS ORDERED: PRED10TA PO (13:02)
[2024-06-27] MEDS ORDERED: GUAI600T44 PO (13:02)
[2024-06-27] MEDS ORDERED: AMOX1TAB15 MT (13:02)
[2024-06-27 17:09] LABS: ANISOCYTOSIS 1+; GIANT PLATELETS 1+; PLATELET ESTIMATE NORMAL
[2024-06-30 04:07] LABS: CA 27.29 68.9 U/mL (0.0-38.6)
== END 2024-06-27 16:50 | disposition home or self-care (01) | DRG 133 ==
LOC: ER 13:13 → MICUSO 15:57 → EDBEDREQ 16:00 → 7EST 06-26 06:11
PROVIDERS: ADMIT Hospitalist; ATTEND Hospitalist
DX: J96.01 Acute respiratory failure with hypoxia (principal); C78.02 Secondary malignant neoplasm of left lung; J45.901 Unspecified asthma with (acute) exacerbation; J44.9 Chronic obstructive pulmonary disease, unspecified; D64.81 Anemia due to antineoplastic chemotherapy; Z20.822 Contact with and (suspected) exposure to COVID-19; T45.1X5A Adverse effect of antineoplastic and immunosuppressive drugs, initial encounter; Z79.51 Long term (current) use of inhaled steroids; Z85.3 Personal history of malignant neoplasm of breast; Z87.891 Personal history of nicotine dependence; Z90.13 Acquired absence of bilateral breasts and nipples; Z92.21 Personal history of antineoplastic chemotherapy; Z98.891 History of uterine scar from previous surgery; Y92.89 Other specified places as the place of occurrence of the external cause
CPT/HCPCS: 36415; 36600; 71045; 71250; 80048; 82375; 82378; 82805; 83735; 84100; 84145; 85025; 85379; 86300; 87426; 87804; 93005; 93970; 94640; 99285; J0456; J0696; J1650; J2470; J2919; J2920; J3475; J7060; J7608; J7626